=== PATIENT | male | born 1945 | race Caucasian/White ===

== ENCOUNTER 2017-05-21 09:21 | Emergency (ER) | payer OTHER, MEDICARE ==
[2017-05-21 09:28] VITALS: RESP 18; TEMP 97.2
--- NOTE | 2017-05-21 09:31 | EDPHY ---
H & P Stated Complaint: AZEVEDO for 5 days Time Seen by Provider: 05/21/17 09:30 - Personal History Current Tetanus/Diphtheria Vaccine: Yes Current Tetanus Diphtheria and Acellular Pertussis (TDAP): Yes Tetanus Vaccine Date: 2008 - Medical/Surgical History Hx Asthma: No Hx Chronic Respiratory Disease: No Hx Diabetes: No Hx Cardiac Disease: Yes Hx Renal Disease: No Hx Cirrhosis: No Hx Alcoholism: No Hx HIV/AIDS: No Other PMH: CAD, Bypass, HTN, hyperlipidemia, shoulder sx, bilat knee sx, arnaldo, hernia repairs, sleep apnea - Social History Smoking Status: Never smoked Constitutional: Initial Vital Signs Temperature (C) 36.2 C 05/21/17 09:26 Heart Rate 47 L 05/21/17 09:26 Respiratory Rate 18 05/21/17 09:26 Blood Pressure 173/83 H 05/21/17 09:26 O2 Sat (%) 99 05/21/17 09:26 O2 Delivery Mode Room Air Allergies/Adverse Reactions: No Known Allergies Allergy (Verified 05/21/17 09:24) Home Medications: Medication Instructions Recorded Atenolol [Tenormin 25 mg (*)] 12.5 mg PO HS 04/21/14 Cholecalciferol (Vitamin D3) 2,000 unit PO DAILY 04/21/14 [Vitamin D3] Herbals/Supplements -Info Only 1 ea PO DAILY 04/21/14 Niacin ER [Niaspan 1000 mg (*)] 1,000 mg PO HS 04/21/14 Omeprazole [Prilosec 20 mg] 20 mg PO DAILY 04/21/14 Rosuvastatin Calcium [Crestor] 10 mg PO DAILY 04/21/14 Valsartan [Diovan (*)] 160 mg PO DAILY 04/21/14 amLODIPine BESYLATE [Norvasc 10 mg 10 mg PO DAILY 04/21/14 (*)] Medical Decision Making - Diagnostics Imaging Results: Imaging Impressions Head CT 05/21/17 09:52 Impression: 1. No acute intracranial findings. 2. Diffuse cerebral atrophy with periventricular and subcortical low attenuation consistent with chronic microvascular ischemic gliosis. Head CTA 05/21/17 09:53 Impression: No acute vascular findings. If symptoms persist and clinical suspicion warrants, consider MRI. Findings discussed with Catracho Mast MD, 05/21/2017 at 1129 hours. Imaging: Discussed imaging studies w/ manager call center Radiologist, I viewed and interpreted images myself ED Course/Re-evaluation: CHIEF COMPLAINT: Headache HISTORY OF PRESENT ILLNESS: The patient is a 71 y/o male arriving with his complaining of a persistent headache onset night, 4 days ago. His medical history includes CAD, CABG, hypertension, traumatic subarachnoid hemorrhage, "cysts in my back," and hyperlipidemia. evening he developed an unprovoked [id number] headache for which he took Advil. He then woke up around midnight "with my head just pounding" across his entire head. He paced all night, applied ice to his head, and had no improvement in symptoms. Sunday he went on a bike ride, but had to cut it short due to this persistent headache, though he denies exacerbation of symptoms by the exertion. The same throbbing pain woke him from sleep Sunday and was persistent through the weekend. Last night he tried to sleep in a recliner and continued to wake frequently with this pounding headache. Sitting forward for a few minutes seemed to decrease severity temporarily. He denies recent trauma, recent illness , sinus infection, spinal procedures, vision changes, weakness, paresthesias, or other complaints. He takes a daily baby aspirin, no anticoagulants. 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 He also mentions he had cluster headaches in his 20s, but his current symptoms feel completely different to him. REVIEW OF SYSTEMS: A 10 point review of systems was performed and is negative with the exception of the elements mentioned in the history of present illness. PHYSICAL EXAM: HR, BP 173/83, O2 Sat, RR. Temp noted General Appearance: Alert, well hydrated, appropriate, and non-toxic appearing. Head: Atraumatic without scalp tenderness or obvious injury Eyes: Pupils equal, round, reactive to light and accommodation, EOMI, no trauma , no injection. Ears: Clear bilaterally, no perforation, normal landmarks Nose: Atraumatic, no rhinorrhea, clear. Throat: Mucus membranes moist. Neck: Supple, nontender, no lymphadenopathy. Respiratory: No retractions, no distress, no wheezes, and no accessory muscle use. Lungs are clear to auscultation bilaterally. Cardiovascular: Regular rate and rhythm, no murmurs, rubs, or gallops. Good capillary refill all extremities. Gastrointestinal: Abdomen is soft, nontender, non-distended, no masses, no rebound, no guarding, no peritoneal signs. Musculoskeletal: Normal active ROM of all extremities, atraumatic. Neurological: Alert, appropriate, and interactive. The patient has non-focal cranial nerves, motor, sensory, and cerebellar exam. Skin: No rashes, good turgor, no nodules on palpation. Past medical history: "Cysts in back," remote history of cluster headaches, subarachnoid hemorrhage after fall, CAD, hypertension, hyperlipidemia, sleep apnea Past surgical history: CABGx1 for complete LAD occlusion, shoulder surgery, bilateral knee surgery, cholecystectomy, hernia repairs Family history: Noncontributory Social history: at bedside. Nonsmoker. Prior medical records reviewed including admission 04/21/14 for subarachnoid hemorrhage. DIAGNOSTICS/PROCEDURES/CRITICAL CARE TIME: Head CT: negative Head CTA: negative DIFFERENTIAL DIAGNOSIS: The differential diagnosis for the patient's headache included but was not limited to subarachnoid hemorrhage, migraine headache, tension headache and infectious causes such as meningitis, pharyngitis and sinusitis. MEDICAL DECISION MAKING: This is a 71 y/o male with a history of CAD with CABGx1, hypertension, and subarachnoid hemorrhage who presents with a 5-day history of a persistent diffuse throbbing headache that at times seems positional. No preceding trauma or other events. He has a completely normal neuro exam. Presentation could indicate atypical headache, hemorrhage, or possibly hypertension-related headache, though his BP measurements at home have not been high enough to make this as likely. Plan for IV, labs, head CT and CTA. Symptom management with 30mg IV Toradol, 10mg IV Reglan. Labs unremarkable. Imaging is negative. Revaluated patient and discussed findings. At this time his headache is "pretty much gone." His BP is currently 142/94. His symptoms could represent hypertensive headache since reducing his amlodipine, though lower pressures make this less likely. I've recommended restarting his amlodipine at half the dose until he is able to follow up with his PCP. Return precautions discussed. He is comfortable with this plan. - Data Points Laboratory Results: Laboratory Results 05/21/17 10:00 05/21/17 10:00 05/21/17 05/21/17 05/21/17 10:00 10:00 10:00 WBC 4.79 10^3/uL 10^3/uL (3.80-9.50) RBC 5.57 10^6/uL 10^6/uL (4.40-6.38) Hgb 18.5 g/dL H g/dL (13.7-17.5) Hct 52.3 % H % (40.0-51.0) MCV 93.9 fL fL (81.5-99.8) MCH 33.2 pg pg (27.9-34.1) MCHC 35.4 g/dL g/dL (32.4-36.7) RDW 12.9 % % (11.5-15.2) Plt Count 111 10^3/uL L 10^3/uL (150-400) MPV 8.9 fL fL (8.7-11.7) Neut % (Auto) 51.0 % % (39.3-74.2) Lymph % (Auto) 31.7 % % (15.0-45.0) [place] % (Auto) 8.8 % % (4.5-13.0) Eos % (Auto) 7.3 % % (0.6-7.6) Baso % (Auto) 1.0 % % (0.3-1.7) Nucleat RBC Rel Count 0.0 % % (0.0-0.2) Absolute Neuts (auto) 2.44 10^3/uL 10^3/uL (1.70-6.50) Absolute Lymphs (auto) 1.52 10^3/uL 10^3/uL (1.00-3.00) Absolute Monos (auto) 0.42 10^3/uL 10^3/uL (0.30-0.80) Absolute Eos (auto) 0.35 10^3/uL 10^3/uL (0.03-0.40) Absolute Basos (auto) 0.05 10^3/uL 10^3/uL (0.02-0.10) Absolute Nucleated RBC 0.00 10^3/uL 10^3/uL (0-0.01) Immature Gran % 0.2 % % (0.0-1.1) Immature Gran # 0.01 10^3/uL 10^3/uL (0.00-0.10) PT 13.7 SEC SEC (12.0-15.0) INR 1.03 (0.83-1.16) Sodium 144 mEq/L mEq/L (135-145) Potassium 4.2 mEq/L mEq/L (3.5-5.2) Chloride 105 mEq/L mEq/L (97-110) Carbon Dioxide 28 mEq/l mEq/l (22-31) Anion Gap 11 mEq/L mEq/L (8-16) BUN 18 mg/dL mg/dL (7-23) Creatinine 0.9 mg/dL mg/dL (0.7-1.3) Estimated GFR > 60 Glucose 87 mg/dL mg/dL (70-100) Calcium 9.2 mg/dL mg/dL (8.5-10.4) Medications Given: Discontinued Medications Ketorolac Tromethamine (Toradol) 30 mg IVP EDNOW ONE Stop: 05/21/17 09:52 Last Admin: 05/21/17 10:08 Dose: 30 mg Metoclopramide HCl (Reglan Injection) 10 mg IVP EDNOW ONE Stop: 05/21/17 09:52 Last Admin: 05/21/17 10:08 Dose: 10 mg Departure - Departure Disposition: Home, Routine, Self-Care Clinical Impression: Hypertension Qualifiers: Hypertension type: essential hypertension Qualified Code(s): I10 - Essential ( primary) hypertension Headache Qualifiers: Headache type: other headache syndrome Qualified Code(s): G44.89 - Other headache syndrome Condition: Good Instructions: Acute Headache (ED), Amlodipine (By mouth) Additional Instructions: 1. Take 5mg amlodipine daily until follow up with your primary care provider. 2. Follow up with your primary care provider within the next few days to discuss symptoms and blood pressure medication dosing. 3. You can try Excedrin, available [id number], if headache returns. Use as directed on packaging. 4. Return to the ED for severe pain, difficulty speaking, weakness or numbness on one side of your body, vision changes, fever or other worsening of condition. 5. You've been referred to a neurologist for evaluation if your headache symptoms persist. Referrals: Arcenio Huston MD [Primary Care Provider] - As per Instructions Oracio Angel DO [Medical Doctor] - As per Instructions Report Scribed for: Catracho Mast Report Scribed by: Yomaira Atsudillo Date of Report: 05/21/17 Time of Report: 09:57
[2017-05-21] MEDS ORDERED: KETOROLAC 30 MG/1 ML SDV IVP ONE (09:51)
[2017-05-21] MEDS ORDERED: METOCLOPRAMIDE 10 MG/2 ML VIAL IVP ONE (09:51)
[2017-05-21 10:10] LABS: PLATELET COUNT 111 10^3/uL (150-400)
[2017-05-21 10:19] LABS: INR 1.03 (0.83-1.16); PROTIME(PATIENT) 13.7 SEC (12.0-15.0)
[2017-05-21] MEDS ORDERED: IOPAMIDOL (ISOVUE 370) 100 ML BTL IV ONE (10:41)
[2017-05-21 12:18] VITALS: BP 151/90; PULSE 51; O2SAT 96
== END 2017-05-21 12:18 | disposition home or self-care (01) ==
DX: I10 Essential (primary) hypertension (principal); G44.89 Other headache syndrome; I25.810 Atherosclerosis of coronary artery bypass graft(s) without angina pectoris
CPT/HCPCS: 70450; 70496; 96374; 96375; 99285; J1885; J2765; Q9967

== ENCOUNTER → 2017-06-12 | Outpatient (CLI) | payer OTHER, MEDICARE | LOC: CIMAGING 07:42 | PROVIDERS: ATTEND Family Medicine | DX: I10 Essential (primary) hypertension (principal); R93.429 Abnormal radiologic findings on diagnostic imaging of unspecified kidney | CPT/HCPCS: 76770-PO ==

== ENCOUNTER → 2018-02-13 | Outpatient (CLI) | payer OTHER, MEDICARE | LOC: CIMAGING 08:06 | PROVIDERS: ATTEND Physician Assistant Medical | DX: N20.0 Calculus of kidney (principal); N20.1 Calculus of ureter | CPT/HCPCS: 74176-PO ==

== ENCOUNTER → 2018-02-25 | Outpatient (CLI) | payer OTHER, MEDICARE | LOC: BHFA 09:45 | PROVIDERS: ATTEND Nurse Practitioner Adult Health | DX: I25.10 Atherosclerotic heart disease of native coronary artery without angina pectoris (principal); I10 Essential (primary) hypertension ==

== ENCOUNTER 2018-05-09 08:40 | Emergency (ER) | payer OTHER, MEDICARE ==
--- NOTE | 2018-05-09 09:13 | EDPHY ---
H & P Stated Complaint: stiff neck, can't move neck Time Seen by Provider: 05/09/18 08:53 HPI/ROS: CHIEF COMPLAINT: HISTORY OF PRESENT ILLNESS: 72-year-old male arrives via private vehicle, history of coronary artery disease, CABG, hypertension, traumatic subarachnoid hemorrhage, hyperlipidemia, complaining of 4 days of progressive "neck stiffness ". He awoke with a self-described "stiff neck" which has not been alleviated with Tylenol and Motrin. He notes the pain seems to be in progressively worse. He denies: Chest pain, dyspnea, back pain, syncope or near syncope, headache , nausea, vomiting, peripheral paresthesia, weakness, numbness, major or minor neck trauma or manipulation, motor vehicle accident, chiropractic manipulation, deep tissue massage, facial complaints, dizziness. PRIMARY CARE PROVIDER: Dr. Arcenio Huston [facility] REVIEW OF SYSTEMS: 10 systems reviewed and negative with the exception of the elements mentioned in the history of present illness PAST MEDICAL & SURGICAL HISTORY: Coronary artery disease, CABG, hyperlipidemia , SOCIAL HISTORY: Nonsmoker. . PHYSICAL EXAM (Prior to examination, patient consented to physical exam, hands were washed and my usual and customary physical exam procedures followed) 1) GENERAL: Well-developed, well-nourished, alert and oriented. Appears nontoxic. Answering questions appropriately.. 2) HEAD: Normocephalic, atraumatic 3) HEENT: Pupils equal, round, reactive to light bilaterally. Sclera anicteric. Nasopharynx, oropharynx, clear, no lesions. MoistDry mucous membranes. Ears bilaterally with normal tympanic membranes. 4) NECK: Full range of motion, no meningeal signs. No carotid bruit 5) LUNGS: Clear auscultation bilaterally, no wheezes, no rhonchi, no retractions. 6) HEART: Regular rate and rhythm, no murmur, no heave, no gallop. 7) ABDOMEN: No guarding, no rebound, no focal tenderness, negative McBurney's, negative Burton's, negative Rovsing's, negative peritoneal sign, 8) MUSCULOSKELETAL: Moving all extremities, no focal areas of tenderness, no obvious trauma. No peripheral edema or discoloration. 9) BACK: No CVA tenderness, no midline vertebral tenderness, no fluctuance, no step-off, no obvious trauma, no visual or palpable abnormality. 10) SKIN: No rash, no petechiae. 11) Psychiatric: Patient is oriented X 3, there is no agitation. 12) CERVICAL SPINE NEURO EXAM: Bilateral reflexes of biceps triceps brachioradialis intact equal bilaterally Motor exam: deltoid, biceps, wrist extension, tricep, finger extension, finger flexion, finger abduction intact equal bilaterally 5/5 DIFFERENTIAL DIAGNOSIS: In no particular order my differential includes but is not limited to deep space infection, cervico-cranial vessel disssection, muscle strain. - Personal History Current Tetanus/Diphtheria Vaccine: Yes Current Tetanus Diphtheria and Acellular Pertussis (TDAP): Yes Tetanus Vaccine Date: 2008 - Medical/Surgical History Hx Asthma: No Hx Chronic Respiratory Disease: No Hx Diabetes: No Hx Cardiac Disease: Yes Hx Renal Disease: No Hx Cirrhosis: No Hx Alcoholism: No Hx HIV/AIDS: No Hx Splenectomy or Spleen Trauma: No Other PMH: CAD, Bypass, HTN, hyperlipidemia, shoulder sx, bilat knee sx, arnaldo, hernia repairs, sleep apnea - Social History Smoking Status: Former smoker Constitutional: Initial Vital Signs Temperature (C) 36.8 C 05/09/18 08:43 Heart Rate 55 L 05/09/18 08:43 Respiratory Rate 16 05/09/18 08:43 Blood Pressure 143/70 H 05/09/18 08:43 O2 Sat (%) 96 05/09/18 08:43 O2 Delivery Mode Room Air Allergies/Adverse Reactions: No Known Allergies Allergy (Verified 10/21/17 00:02) Home Medications: Medication Instructions Recorded Aspirin [Aspirin 81mg (*)] 81 mg PO DAILY 10/21/17 Atenolol [Tenormin 25 mg (*)] 12.5 mg PO HS 10/21/17 Cholecalciferol Vit D3 [Vitamin D3 2,000 units PO DAILY 10/21/17 (*)] Herbals/Supplements -Info Only 1 ea PO DAILY 10/21/17 Losartan Potassium 100 mg PO DAILY 10/21/17 Niacin ER [Niaspan 1000 mg (*)] 1,000 mg PO HS 10/21/17 Omeprazole 20 mg PO DAILY 10/21/17 Rosuvastatin Calcium 10 mg PO DAILY 10/21/17 amLODIPine BESYLATE [Norvasc 10 mg 10 mg PO HS 10/21/17 (*)] Hydrocodone/APAP 5/325 [[place] 1 - 2 tab PO Q6H PRN #20 tab 10/23/17 5/325 (*)] Ibuprofen [Motrin (*)] 600 mg PO Q6H #40 tab 10/23/17 Cyclobenzaprine [Flexeril 10 MG 10 mg PO TID #15 tab 05/09/18 (RX)] Medical Decision Making - Diagnostics Imaging Results: Imaging Impressions Neck CTA 05/09/18 09:31 Impression: 1. There is no hemodynamically significant ICA stenosis. 2. Patent vertebral arteries without evidence of dissection. Quita Brar was notified of these findings by telephone at 10:37 AM on 2018. Images reviewed myself ED Course/Re-evaluation: 10:40 a.m.: Re-evaluation. Discussed with patient his CT angiography which is negative for dissection. He was given or Flexeril and notes improvement in symptoms, increased range of motion. At this time I think the patient can be discharged home. Recommended no chiropractic manipulation, no deep tissue massage, recommend close follow-up with primary care provider at [facility]. He feels comfortable being discharged. All questions and concerns addressed by myself. Patient feels comfortable being discharged. All questions and concerns addressed by myself. Patient given my usual and customary discharge precautions and instructions regarding their clinical impression. Care of patient under supervision of primary Supervising physician Dr Goetz with whom I discussed case. - Data Points Laboratory Results: 05/09/18 09:21 POC Hgb 16.0 gm/dL gm/dL (13.7-17.5) POC Hct 47 % % (40-51) POC Sodium 143 mEq/L mEq/L (135-145) POC Potassium 4.0 mEq/L mEq/L (3.3-5.0) POC Chloride 103 mEq/L mEq/L (97-110) POC Total CO2 28 mEq/L mEq/L (22-31) POC BUN 19 mg/dL mg/dL (7-23) POC Creatinine 0.9 mg/dL mg/dL (0.7-1.3) POC Glucose 92 mg/dL mg/dL (70-100) Medications Given: Discontinued Medications Cyclobenzaprine HCl (Flexeril) 10 mg PO EDNOW ONE Stop: 05/09/18 09:25 Last Admin: 05/09/18 09:29 Dose: 10 mg Point of Care Test Results: Chemistry 05/09/18 09:21 POC Sodium 143 mEq/L mEq/L (135-145) POC Potassium 4.0 mEq/L mEq/L (3.3-5.0) POC Chloride 103 mEq/L mEq/L (97-110) POC Total CO2 28 mEq/L mEq/L (22-31) POC BUN 19 mg/dL mg/dL (7-23) POC Creatinine 0.9 mg/dL mg/dL (0.7-1.3) POC Glucose 92 mg/dL mg/dL (70-100) ISTAT H&H 05/09/18 09:21 POC Hgb 16.0 gm/dL gm/dL (13.7-17.5) POC Hct 47 % % (40-51) Departure - Departure Disposition: Home, Routine, Self-Care Clinical Impression: Cervical strain, acute Qualifiers: Encounter type: initial encounter Qualified Code(s): S16.1XXA - Strain of muscle, fascia and tendon at neck level, initial encounter Condition: Good Instructions: Cervical Strain (ED) Additional Instructions: Return to the ER immediately if you experience new or worsening neck pain, dizziness, visual disturbance, double vision, lightheadedness, facial droop, or any other symptoms that concern you. Avoid deep tissue massage and chiropractic manipulation, until symptom-free, and cleared by your regular health care provider. Referrals: Arcenio Huston MD [Primary Care Provider] - 2-3 days, call for appt. Prescriptions: Cyclobenzaprine [Flexeril 10 MG (RX)] 10 mg PO TID #15 tab
[2018-05-09] MEDS ORDERED: CYCLOBENZAPRINE 10 MG TAB PO ONE (09:24)
[2018-05-09] MEDS ORDERED: IOPAMIDOL (ISOVUE-370) 150 ML BTL IV ONE (09:47)
[2018-05-09 10:23] VITALS: BP 114/74
== END 2018-05-09 11:04 | disposition home or self-care (01) ==
DX: S16.1XXA Strain of muscle, fascia and tendon at neck level, initial encounter (principal); I10 Essential (primary) hypertension; E78.5 Hyperlipidemia, unspecified; I25.10 Atherosclerotic heart disease of native coronary artery without angina pectoris; X50.1XXA Overexertion from prolonged static or awkward postures, initial encounter; Y99.9 Unspecified external cause status; Z95.1 Presence of aortocoronary bypass graft; Z87.891 Personal history of nicotine dependence
CPT/HCPCS: 70498; 99285; Q9967; 82435-PO; 82565-PO; 82947-PO; 84132-PO; 84295-PO; 84520-PO; 85014-ER